=== PATIENT | male | born 1975 | race Caucasian/White ===

== ENCOUNTER 2024-10-07 08:40 | Outpatient (CLI) | payer BC | END 2024-10-07 08:41 | disposition home or self-care (01) | LOC: CSHRAD 08:40 | PROVIDERS: ATTEND Internal Medicine | DX: Z98.890 Other specified postprocedural states (principal); N36.8 Other specified disorders of urethra; N35.919 Unspecified urethral stricture, male, unspecified site | CPT/HCPCS: 51610; 74450 ==